=== PATIENT | male | born 1960 | race Caucasian/White ===

== ENCOUNTER 2018-01-15 06:57 | Inpatient (IN) | payer OTHER ==
[2017-12-27 13:39] VITALS: BMI 21.0
--- NOTE | 2017-12-27 14:16 | PAT Medication Instructions ---
Service Date Dec 27, 2017. Current Home Medication List Albuterol Hfa (Ventolin Hfa), 2 PUFFS INH Q6H PRN for PRN Aspirin (Weston Aspirin Ec Low Dose), 1 TAB PO QAM Atorvastatin (Lipitor), 40 MG PO QPM Duloxetine Hcl (Cymbalta), 1 CAP PO QAM Lisinopril (Prinivil), 1 TAB PO QAM Meloxicam (Mobic), 15 MG PO QAM Metoprolol Succinate (Metoprolol Succinate ER), 25 MG PO QAM Nitroglycerin (Nitroglycerin), 1 TAB SL for UNDECIDED Spironolactone (Aldactone), 1 TAB PO QAM Trazodone Hcl (Trazodone), 50 MG PO HS PRN for Depression Warfarin Sod (Coumadin), 5 MG PO 6XWEEK Warfarin Sod (Coumadin), 7.5 MG PO SUNDAY Medication Instructions For Your Scheduled Surgery -Contact your surgeon for instructions: Meloxicam (Mobic), 15 MG PO QAM -Continue as directed: Nitroglycerin (Nitroglycerin), 1 TAB SL for UNDECIDED -Follow the instructions from the [facility] for: Warfarin Sod (Coumadin), 5 MG PO 6XWEEK Warfarin Sod (Coumadin), 7.5 MG PO SUNDAY - Hold the following medications the morning of surgery: Lisinopril (Prinivil), 1 TAB PO QAM Spironolactone (Aldactone), 1 TAB PO QAM - Take the following medications the morning of surgery with a sip of water: Metoprolol Succinate (Metoprolol Succinate ER), 25 MG PO QAM Duloxetine Hcl (Cymbalta), 1 CAP PO QAM Albuterol Hfa (Ventolin Hfa), 2 PUFFS INH Q6H PRN for PRN (if needed) Aspirin (Weston Aspirin Ec Low Dose), 1 TAB PO QAM - Take the following medications as scheduled the night before surgery: Trazodone Hcl (Trazodone), 50 MG PO HS PRN for Depression (if needed) Atorvastatin (Lipitor), 40 MG PO QPM If you have any questions please call us at [phone] or [phone] or [phone]
--- NOTE | 2017-12-27 14:51 | DIAGNOSTIC IMAGING REPORT ---
CHEST 2 VIEWS ROUTINE HISTORY: 57 years-old Male PAT preoperative exam. No acute chest complaints. COMPARISON: Chest radiographs 09/16/2015 TECHNIQUE: PA and lateral views of the chest FINDINGS: Cardiac silhouette is again mildly enlarged. Dual lead left pectoral pacer/AICD appears unchanged. Atherosclerosis of the aorta. No pneumothorax, pleural effusion, focal airspace consolidation or overt pulmonary edema. Lungs are mildly hyperinflated. Increased lucency of the lungs suggests emphysema. The bones of the chest appear grossly intact. IMPRESSION: 1. Emphysema without acute process. 2. Cardiomegaly. The above report was generated using voice recognition software. It may contain grammatical, syntax or spelling errors. Electronically signed by: Dirk Mcmillan M.D. 12/27/2017 2:49 PM Dictated Date/Time: 12/27/2017 2:48 PM
[2017-12-27 15:47] LABS: BASO % 0.6 %; BASO ABS # 0.04 K/uL (0-0.2); EOS % 1.4 %; EOS ABS # 0.09 K/uL (0-0.5); HEMATOCRIT 49.1 % (42-52); HEMOGLOBIN 17.6 g/dL (14.0-18.0); IG# 0.01 K/uL (0.00-0.02); LYMPH % 33.2 %; LYMPH ABS # 2.13 K/uL (1.2-3.4); MEAN CELL VOLUME 95.9 fL (80-100); MEAN CORPUSCULAR HEMOGLOBIN 34.4 pg (25-34); MEAN CORPUSCULAR HGB CONC 35.8 g/dl (32-36); MEAN PLATELET VOLUME 10.6 fL (7.4-10.4); MONO % 12.3 %; MONO ABS # 0.79 K/uL (0.11-0.59); NEUT % 52.3 %; NEUT ABS # 3.35 K/uL (1.4-6.5); PLATELET COUNT 118 K/uL (130-400); RED CELL DISTRIBUTION WIDTH CV 14.2 % (11.5-14.5); RED CELL DISTRIBUTION WIDTH SD 50.3 fL (36.4-46.3); WHITE BLOOD COUNT 6.41 K/uL (4.8-10.8)
[2017-12-27 15:54] LABS: CALCIUM 8.7 mg/dl (8.5-10.1); CREATININE 1.04 mg/dl (0.60-1.40); POTASSIUM 4.3 mmol/L (3.5-5.1)
[~2018-01-15] VITALS: Ht 172.7 cm; Wt 65.8 kg
[2018-01-15] VITALS (10 sets, daily range): BP systolic 101–115; BP diastolic 57–69; PULSE 61–78; TEMP 36.4–36.8; O2SAT 93–98; Ht 172.7 cm; Wt 65.8 kg
[~2018-01-15 06:57] MED LIST: ASPI1TAB2 PO; CEFAZOLIN 1000MG IV PUSH 7.5 ML IV SCH; CMD/25 PO; CMD5 PO; DULO60CA44 PO; LACTATED RINGER'S 1000ML 1,000 ML IV SCH; LISI5TAB PO; LPT/40 PO; MELO7.5T5 PO; NITR0.4D6 SL; SPIR25TA89 PO; TPRSR50 PO; TRAZ50TA35 PO; VNTHFA/IN INH
[2018-01-15] MEDS ORDERED: MIDAZOLAM HCL 1 MG/ML 2ML VIAL ONE (08:14)
[2018-01-15] MEDS ORDERED: FENTANYL CITRATE INJ 50 MCG/1 ML 2 ML VIAL ONE ×3 (08:14→10:52)
[2018-01-15 08:34] LABS: INR 1.2 (0.9-1.1); PTT PATIENT 27.8 SECONDS (21.0-31.0)
--- NOTE | 2018-01-15 08:42 | History & Physical Bridge Note ---
H&P Re-Evaluation Bridge Note: I have examined the patient, reviewed the History & Physical and in the interval since the performance of the History & Physical I have noted the following changes of clinical significance: No changes noted
--- NOTE | 2018-01-15 08:43 | History and Physical ---
History & Physical Date Jan 15, 2018. Chief Complaint Back and leg pain History of Present Illness The patient is a 57 year old male with complaints of back and leg pain Past Medical/Surgical History Medical Problems: (1) Lumbar stenosis with neurogenic claudication Additional History Hepatic Disease: No Endocrine Disorder: No Kidney Disease: No Hypertension: Yes Heart Disease: No Bleeding Tendencies: No Infectious Diseases: No Allergies Coded Allergies: No Known Drug Allergy (Unverified Allergy, Unknown, NONE, 01/15/18) Home Medications Scheduled Aspirin (Weston Aspirin Ec Low Dose), 1 TAB PO QAM Atorvastatin (Lipitor), 40 MG PO QPM Duloxetine Hcl (Cymbalta), 1 CAP PO QAM Lisinopril (Prinivil), 1 TAB PO QAM Meloxicam (Mobic), 15 MG PO QAM Metoprolol Succinate (Metoprolol Succinate ER), 25 MG PO QAM Spironolactone (Aldactone), 1 TAB PO QAM Warfarin Sod (Coumadin), 5 MG PO 6XWEEK Warfarin Sod (Coumadin), 7.5 MG PO SUNDAY Scheduled PRN Albuterol Hfa (Ventolin Hfa), 2 PUFFS INH Q6H PRN for PRN Nitroglycerin (Nitroglycerin), 1 TAB SL for UNDECIDED Trazodone Hcl (Trazodone), 50 MG PO HS PRN for Depression Physical Examination Skin: warm/dry, no rash Eyes: normal inspection, EOMI, sclerae normal ENT: normal ENT inspection, pharynx normal Head: normocephalic, atraumatic Neck: supple, no adenopathy, trachea midline Respiratory/Chest: lungs clear, normal breath sounds, no respiratory distress Cardiovascular: regular rate, rhythm, no edema, no murmur Abdomen / GI: normal bowel sounds, non tender Back: normal inspection Extremities: normal inspection, normal range of motion Neurologic/Psych: no motor/sensory deficits, alert, normal reflexes, oriented x 3 Diagnosis Lumbar spinal stenosis Plan of Treatment Hardware removal L4 to S1, decompression L3 4 fusion L3 to S1
[2018-01-15] MEDS ORDERED: BACITRACIN 50000 UNIT VIAL ONE (09:07)
[2018-01-15] MEDS ORDERED: BUPIVACAINE/EPINEPHRINE 0.5% MPF 1:200,000 30 ML VIAL ONE (09:07)
[2018-01-15] MEDS ORDERED: HYDROmorphone INJ 1 MG/ML SYR IV PRN (09:15)
[2018-01-15] MEDS ORDERED: ATROPINE SULFATE 0.1 MG/ML 5ML SYR IV PRN (09:15)
[2018-01-15] MEDS ORDERED: EpHEDrine SULFATE INJ 50 MG/ML AMP IV PRN (09:15)
[2018-01-15] MEDS ORDERED: PROMETHAZINE HCL INJ 12.5 MG in SODIUM CHLORIDE 0.9% 50ML 50 ML IV PRN ×2 (09:15→11:45)
[2018-01-15] MEDS ORDERED: FENTANYL CITRATE INJ 50 MCG/1 ML 2 ML VIAL IV PRN (09:15)
[2018-01-15] MEDS ORDERED: ONDANSETRON INJ 2 MG/ML 2 ML VIAL IV PRN ×2 (09:15→11:45)
[2018-01-15] MEDS ORDERED: ALBUMIN HUMAN 5% 12.5 GM/250 ML VIAL IV ONE (09:21)
[2018-01-15] MEDS ORDERED: HYDROmorphone INJ 2 MG/ML SYR/VIAL ONE ×2 (09:52→11:40)
[2018-01-15] MEDS ORDERED: ETOMIDATE 2 MG/ML 20 ML VIAL IV ONE (10:03)
[2018-01-15] MEDS ORDERED: DEXAMETHASONE SOD INJ 4 MG/ML VIAL ONE (10:03)
[2018-01-15] MEDS ORDERED: PROPOFOL IV EMULSION 10 MG/ML 20 ML VIAL IV ONE (10:03)
[2018-01-15] MEDS ORDERED: LIDOCAINE HCL 2% 2 ML VIAL (20MG/ML) ONE (10:03)
[2018-01-15] MEDS ORDERED: EpHEDrine SULFATE 50MG/5ML SYR ONE ×3 (10:12→13:13)
[2018-01-15] MEDS ORDERED: FLOSEAL HEMOSTATIC MATRIX 10ML TOP ONE (11:27)
--- NOTE | 2018-01-15 11:34 | [facility] Operative Report ---
Operative Report Operative Date Jan 15, 2018. Pre-Operative Diagnosis Lumbar Spinal Stenosis Post-Operative Diagnosis Lumbar Spinal Stenosis Procedure(s) Performed #1 removal of posterior segmental instrumentation L4 5 L5-S1. #2 expiration of fusion L4 5 L5-S1. #3 lumbar decompression medial facetectomies foraminotomies L2-3 L3 4. #4 posterior spinal fusion L3 4 L4 5. #5 placement posterior segmental instrumentation L3 4 L4 5. #6 interbody fusion L3 4. #Placed a peek cage 11 x 22 mm L3 4. #8 placement of locally harvested morcellized autograft in the posterior lateral gutters. #9 placement infuse collagen sponge, mass graft in the posterior gutters and osteo-lamp bone graft in the interbody space. Surgeon Dr. Gaytan Cable Stretcher And Tester Surgeon(s) Effie Thomason PA-C Estimated Blood Loss 350ML Findings Severe spinal stenosis Specimens A: Explanted hardware Anesthesia Type General Description of Procedure Patient was met with preoperatively case discussed all questions addressed. After informed consent obtained patient was taken to the operative suite underwent intubation and placed in a prone position on the Fidencio table on top of the Kenji frame. All bony prominences were well-padded the eyes inspected to ensure no external pressure placed upon them. This point the lumbar spine was prepped and draped in normal sterile fashion. Sharp dissection with the assistance of Bovie cautery was performed onto an exposing the lamina and transverse processes of L3 and instrumentation L4 L5-S1 levels bilaterally. I then proceeded remove the hardware at L4 L5 S1 bilaterally. Explained fusion mass. Noted loosening at L4 5 level consistent with a nonunion. Informed complete laminectomy of L3 partial laminectomy of L2 addressing severe lateral recess and foraminal stenosis. Pedicle screws were then placed in L3-L4 and L5 bilaterally with the assistance of fluoroscopy an appropriate size jose guadalupe placed. Through a transforaminal approach on the right complete discectomy of L3 4 was performed endplates graded to subcortical bleeding bone and a 11 x 22 mm peek cage filled with osteal bone graft tapped in position. The rods were then locked and final position bilaterally. The transverse processes of L3 L4-L5 burred to subcortical bleeding bone. Infuse collagen sponge mass graft and locally harvested morcellized autograft was placed. A 15 round CLAIRE drain is inserted. Incision was then closed with 1 Vicryl in the fascia 2-0 Vicryl subcutaneous tensely 4-0 Monocryl for final skin closure Steri-Strips dressings placed. Patient with continued PACU stable condition. Please note Shanice Thomason was present at the entire procedure involved in patient positioning complex portions of the surgery and final skin closure. I attest to the content of the Intraoperative Record and any orders documented therein. Any exceptions are noted below.
[2018-01-15] MEDS ORDERED: NEOSTIGMINE METHYLSULFATE 1 MG/ML 10ML VIAL ONE (11:44)
[2018-01-15] MEDS ORDERED: KETOROLAC TROMETHAMINE 30 MG/ML VIAL ONE (11:44)
[2018-01-15] MEDS ORDERED: GLYCOPYRROLATE INJ 0.2 MG/ML VIAL ONE (11:44)
[2018-01-15] MEDS ORDERED: ONDANSETRON INJ 2 MG/ML 2 ML VIAL ONE ×2 (11:44→13:13)
[2018-01-15] MEDS ORDERED: BISACODYL 10 MG SUPP PR PRN (11:45)
[2018-01-15] MEDS ORDERED: ACETAMINOPHEN 500 MG TAB PO PRN (11:45)
[2018-01-15] MEDS ORDERED: NALOXONE HCL 0.4 MG/1 ML VIAL/CARP IV PRN ×2 (11:45→12:30)
[2018-01-15] MEDS ORDERED: DO NOT ADMINISTER PNEUMOCOCCAL VACCINE PRN (11:45)
[2018-01-15] MEDS ORDERED: METOCLOPRAMIDE HCL INJ 5 MG/ML 2 ML VIAL IV PRN (11:45)
[2018-01-15] MEDS ORDERED: LORAZEPAM 0.5 MG TAB PO PRN (11:45)
[2018-01-15] MEDS ORDERED: DO NOT ADMINISTER FLU VACCINE PRN (11:45)
[2018-01-15] MEDS ORDERED: ALUMINUM/MAGNESIUM SUSP 30 ML UDC PO PRN (11:45)
[2018-01-15] MEDS ORDERED: CEFAZOLIN IV 1,000 MG in DEXTROSE 5% 50ML 50 ML IV SCH (11:45)
[2018-01-15] MEDS ORDERED: SOD PHOSPHATE/SOD BIPHOSPHATE ENEMA 132 ML BTL PR PRN (11:45)
[2018-01-15] MEDS ORDERED: LORAZEPAM INJ 0.5 MG in SYRINGE 0.75 ML IV PRN (11:45)
[2018-01-15] MEDS ORDERED: ACETAMINOPHEN IV 100 ML IV PRN (11:45)
[2018-01-15] MEDS ORDERED: TRAZODONE HCL 50 MG TAB PO PRN (11:45)
[2018-01-15] MEDS ORDERED: hydrOXYzine HCL 25 MG TAB PO PRN (11:45)
[2018-01-15] MEDS ORDERED: FAMOTIDINE 20 MG TAB PO PRN (11:45)
[2018-01-15] MEDS ORDERED: MAGNESIUM HYDROXIDE SUSP 30 ML UDC PO PRN (11:45)
[2018-01-15] MEDS ORDERED: ALBUTEROL HFA 8 GM INHALER INH PRN (11:45)
--- NOTE | 2018-01-15 12:12 | DIAGNOSTIC IMAGING REPORT ---
LUMBAR SPINE 2 OR 3 VIEW HISTORY: 57 years-old Male L4-S1 REMOVE HARDWARE/L3-S1 DECOMPRESSION/FUSION COMPARISON: Lumbar spine spot fluoroscopic images 03/24/2016 TECHNIQUE: 3 spot fluoroscopic images of the lumbar spine were obtained utilizing 9.4 seconds fluoroscopy time FINDINGS: Posterior fusion hardware is noted at what appears to be the L3-L5 levels. Hardware appears intact and alignment is satisfactory. Discectomy changes are noted at L3-L4 and also at L5-S1. The previously noted posterior fusion hardware at L5-S1 is no longer present. IMPRESSION: Lumbar fusion and discectomy changes as above with satisfactory alignment. Please see operative report for further details. The above report was generated using voice recognition software. It may contain grammatical, syntax or spelling errors. Electronically signed by: Dirk Mcmillan M.D. 01/15/2018 12:11 PM Dictated Date/Time: 01/15/2018 12:08 PM
[2018-01-15] MEDS ORDERED: SODIUM CHLORIDE 0.9% 1000ML 1,000 ML IV SCH (12:17)
[2018-01-15] MEDS ORDERED: HYDROmorphone HCL 0.5MG/ML 50 ML CASSETTE ONE (12:27)
[2018-01-15] MEDS ORDERED: HYDROmorphone HCL 0.5MG/ML 50 ML CASSETTE IV PRN (12:30)
--- NOTE | 2018-01-15 12:36 | Anesthesiology Progress Note ---
Anesthesia Post Op Note Date & Time Jan 15, 2018 at 12:35 Vital Signs Pain Intensity: 0 Vital Signs Past 12 Hours Date Time Temp Pulse Resp B/P (MAP) Pulse Ox O2 Delivery O2 Flow Rate FiO2 01/15/18 12:25 79 15 104/61 94 Nasal Cannula 3 01/15/18 12:15 79 18 117/66 97 Oxymask 8 01/15/18 12:05 87 16 129/72 99 Oxymask 8 01/15/18 11:58 36.8 88 16 130/75 99 Oxymask 8 01/15/18 07:15 36.6 61 18 115/69 98 Room Air Notes Mental Status: alert / awake / arousable, participated in evaluation Pt Amnestic to Procedure: Yes Nausea / Vomiting: adequately controlled Pain: adequately controlled Airway Patency, RR, SpO2: stable & adequate BP & HR: stable & adequate Hydration State: stable & adequate Anesthetic Complications: no major complications apparent Awake, doing well, VSS. Will be going to telemetry unit overnight due to his cardiac comorbidities.
[2018-01-15] MEDS: SODIUM CHLORIDE 0.9% 1000ML 1,000 ML IV SCH (14:25)
[2018-01-15] MEDS: CEFAZOLIN IV 1,000 MG in SYRINGE 0 ML IV SCH (17:53)
[2018-01-15] MEDS: DOCUSATE SODIUM/SENNA 50/8.6MG TAB PO SCH (21:18)
[2018-01-15] MEDS: ATORVASTATIN 40 MG TAB PO SCH (21:18)
[2018-01-15] MEDS ORDERED: NURSING DECISION MEDICATION ORDER SCH (21:45)
--- NOTE | 2018-01-15 21:46 | Medical Consult ---
Consultation Date of Consultation: Jan 15, 2018. Attending Physician: Shaquille Gaytan D.O. Reason for Consultation: Medical management . History of Present Illness 57-year-old male followed by Dr. Timmons in [place]. History of coronary artery disease, ischemic cardiomyopathy, COPD, and other problems noted below. Removal of lumbar hardware and lumbar fusion performed today by Dr. Gaytan. Doing well postoperatively. No chest pain. No cough or dyspnea. No nausea or vomiting. Has Garcia catheter. Postop pain well-controlled. . Past Medical/Surgical History Coronary artery disease, status post myocardial infarction, status post PCI Ischemic cardiomyopathy History of left ventricular thrombus COPD Dyslipidemia . Family History Mother-heart disease Father-"blood clot" Brother-COPD Sister-hypertension . Social History Smoking Status: Current Every Day Smoker Alcohol Use: Drank regularly in the past, but not for several years. Allergies Coded Allergies: No Known Drug Allergy (Unverified Allergy, Unknown, NONE, 01/15/18) Home Medications Reported Home Medications Medications Dose Route/Sig Max Daily Dose Days Date Category Dose Instructions Ventolin Hfa (Albuterol) 200 Puffs/98477 Mcg Aers 2 Puffs INH Q6H PRN 12/27/17 Reported Coumadin (Warfarin Sod) 2.5 Mg Tab 7.5 Mg PO Sunday12/27/17 Reported PM Mobic (Meloxicam) 7.5 Mg Tab 15 Mg PO QAM 12/27/17 Reported Nitroglycerin 0.4 Mg/Hr Dis 1 Tab SL PRN 09/15/15 Reported DIRECTED Trazodone (Trazodone HCl) 50 Mg Tab 50 Mg PO HS PRN 09/15/15 Reported Coumadin (Warfarin Sod) 5 Mg Tab 5 Mg PO 6XWEEK 09/15/15 Reported QPM EXCEPT WEDNESDAYS Metoprolol Succinate ER (Metoprolol Succinate) 50 Mg Tabcr 25 Mg PO QAM 09/15/15 Reported Weston Aspirin Ec Low Dose (Aspirin) 81 Mg Tab 1 Tab PO QAM 30 09/15/15 Reported Lipitor (Atorvastatin) 40 Mg Tab 40 Mg PO QPM 09/15/15 Reported Prinivil (Lisinopril) 5 Mg Tab 1 Tab PO QAM 90 09/15/15 Reported Aldactone (Spironolactone) 25 Mg Tab 1 Tab PO QAM 90 09/15/15 Reported Cymbalta (Duloxetine Hcl) 60 Mg Cap 1 Cap PO QAM 90 09/15/15 Reported Current Inpatient Medications Current Inpatient Medications Medications (Trade) Dose Ordered Sig/Zuri Route Start Time Stop Time Status Last Admin Dose Admin Promethazine HCl 12.5 mg/Sodium Chloride 50.5 ml @ 202 mls/hr Q6H PRN IV 01/15/18 11:45 02/14/18 11:44 Ondansetron HCl (Zofran Inj) 4 mg Q6H PRN IV 01/15/18 11:45 02/14/18 11:44 Metoclopramide HCl (Reglan Inj) 10 mg Q6H PRN IV 01/15/18 11:45 02/14/18 11:44 Lorazepam (Ativan Tab) 0.5 mg Q8H PRN PO 01/15/18 11:45 02/14/18 11:44 Lorazepam 0.5 mg/ Syringe 1 ml @ 1 mls/min Q8H PRN IV 01/15/18 11:45 02/14/18 11:44 Pneumococcal Polysaccharide Vaccine 1 ea PRN PRN N/A 01/15/18 11:45 02/14/18 11:44 Influenza Virus Vacc Triv Types A&B 1 ea PRN PRN N/A 01/15/18 11:45 02/14/18 11:44 Polyethylene (Miralax Powder Packet) 17 gm Q6 PO 01/17/18 06:00 02/16/18 05:59 Bisacodyl (Dulcolax Supp) [address] 01/15/18 11:45 02/14/18 11:44 Magnesium Hydroxide (Milk Of Magnesia Susp) 30 ml DAILY PRN PO 01/15/18 11:45 02/14/18 11:44 Hydromorphone HCl (Dilaudid Inj) 0.5-1mg prn moder... Q3H PRN IV 01/16/18 06:00 01/30/18 05:59 Oxycodone HCl (Roxicodone Immediate Rel Tab) 5-10mg prn moderate to sev... Q4H PRN PO 01/16/18 06:00 01/30/18 05:59 Sodium Chloride 1,000 ml @ 150 mls/hr Q6H40M IV 01/15/18 14:00 02/14/18 13:59 01/15/18 14:25 150 MLS/HR Acetaminophen (Tylenol Tab) 1,000 mg Q8H PRN PO 01/15/18 11:45 02/14/18 11:44 Acetaminophen 100 ml @ 400 mls/hr Q8H PRN IV 01/15/18 11:45 02/14/18 11:44 Naloxone HCl (Narcan Inj) 0.1 mg Q5M PRN IV 01/15/18 11:45 02/14/18 11:44 Senna/Docusate Sodium (Senokot S Tab) 2 tab HS PO 01/15/18 21:00 02/14/18 20:59 01/15/18 21:18 2 TAB Sodium Biphosphate/ Sodium Phosphate (Fleet Enema) [address] 01/15/18 11:45 02/14/18 11:44 Hydroxyzine HCl (Vistaril Tab) 25 mg Q8H PRN PO 01/15/18 11:45 02/14/18 11:44 Al Hydroxide/Mg Hydroxide (Maalox Susp) 30 ml Q6H PRN PO 01/15/18 11:45 02/14/18 11:44 Famotidine (Pepcid Tab) 20 mg Q12 PRN PO 01/15/18 11:45 02/14/18 11:44 Diphenhydramine HCl (Benadryl Cap) 25 mg Q6H PRN PO 01/15/18 11:45 02/14/18 11:44 Miscellaneous Information (Discontinue FOOD SERVICE MANAGER) 1 ea TODAY@0600 N/A 01/16/18 06:00 01/16/18 06:01 Albuterol (Ventolin Hfa Inhaler) 2 puffs Q6H PRN INH 01/15/18 11:45 02/14/18 11:44 Aspirin (Ecotrin Tab) 81 mg QAM PO 01/16/18 09:00 02/15/18 08:59 Atorvastatin Calcium (Lipitor Tab) 40 mg QPM PO 01/15/18 21:00 02/14/18 20:59 01/15/18 21:18 40 MG Duloxetine HCl (Cymbalta Cap) 60 mg QAM PO 01/16/18 09:00 02/15/18 08:59 Lisinopril (Zestril Tab) 5 mg QAM PO 01/16/18 09:00 02/15/18 08:59 Metoprolol Succinate (Toprol Xl Tab) 25 mg QAM PO 01/16/18 09:00 02/15/18 08:59 Spironolactone (Aldactone Tab) 25 mg QAM PO 01/16/18 09:00 02/15/18 08:59 Trazodone HCl (Desyrel Tab) 50 mg HS PRN PO 01/15/18 11:45 02/14/18 11:44 Naloxone HCl (Narcan Inj) 0.1 mg Q5M PRN IV 01/15/18 12:30 01/16/18 06:00 Hydromorphone HCl (Dilaudid Surgical Orderly) 25 mg PRN PRN IV 01/15/18 12:30 01/16/18 06:00 Sodium Chloride 1,000 ml @ 15 mls/hr Q24H IV 01/15/18 12:17 01/16/18 06:00 01/15/18 12:17 15 MLS/HR Cefazolin Sodium 1000 mg/Syringe 7.5 ml @ 2.5 mls/min Q8H IV 01/15/18 18:00 01/16/18 02:02 01/15/18 17:53 2.5 MLS/MIN Miscellaneous Information (Nursing Decision Medication Order) 1 ea UD N/A 01/15/18 21:45 02/14/18 21:44 UNV Review of Systems Constitutional: No fever Respiratory: No cough, No shortness of breath Cardiovascular: No chest pain, No edema Abdomen: No nausea, No vomiting, No GI bleeding Musculoskeletal: + joint pain (Back pain) Genitourinary - Male: No hematuria, No dysuria Hematologic / Lymphatic: + abnormal bleeding/bruising (Bruises easily) Physical Exam Date Time Temp Pulse Resp B/P (MAP) Pulse Ox O2 Delivery O2 Flow Rate FiO2 01/15/18 16:30 70 18 107/60 (76) 97 Room Air 01/15/18 16:00 64 18 103/66 (78) 97 Nasal Cannula 2.0 01/15/18 16:00 97 Nasal Cannula 2.0 01/15/18 15:30 64 18 103/66 (78) 97 Room Air 01/15/18 14:31 36.8 75 18 106/61 (76) 96 Nasal Cannula 2.0 01/15/18 14:28 36.8 73 18 101/57 (72) 96 Nasal Cannula 2.0 01/15/18 13:30 36.6 78 18 107/63 (78) 93 Nasal Cannula 2.0 01/15/18 13:15 66 20 102/56 93 Nasal Cannula 3 01/15/18 13:00 71 22 108/60 94 Nasal Cannula 3 01/15/18 12:45 36.6 72 22 106/59 94 Nasal Cannula 3 01/15/18 12:35 77 20 115/63 94 Nasal Cannula 3 01/15/18 12:25 79 15 104/61 94 Nasal Cannula 3 01/15/18 12:15 79 18 117/66 97 Oxymask 8 01/15/18 12:05 87 16 129/72 99 Oxymask 8 01/15/18 11:58 36.8 88 16 130/75 99 Oxymask 8 01/15/18 07:15 36.6 61 18 115/69 98 Room Air General Appearance: WD/WN, no apparent distress Head: normocephalic, atraumatic Eyes: normal inspection, PERRL, EOMI, sclerae normal, + pertinent finding ( Conjunctivae clear) ENT: normal ENT inspection, hearing grossly normal Neck: supple, no adenopathy, thyroid normal, no JVD, trachea midline Respiratory/Chest: lungs clear Cardiovascular: regular rate, rhythm, no edema, no gallop, no JVD, no murmur Abdomen/GI: normal bowel sounds, non tender, soft, no organomegaly Genitourinary - Male: + pertinent finding (Garcia catheter draining clear urine) Extremities/Musculoskelatal: normal inspection, no calf tenderness, + pertinent finding (SCDs applied) 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 INR 1.2. Sodium 134, potassium 4.3, chloride 103, CO2 26, BUN 7, creatinine 1.4, glucose 74. Chest x-ray demonstrated cardiomegaly, emphysematous changes, no infiltrates, effusions, CHF. Last 24 Hours Test 01/15/18 08:05 Prothrombin Time 12.6 SECONDS Prothromb Time International Ratio 1.2 Activated Partial Thromboplast Time 27.8 SECONDS Partial Thromboplastin Ratio 1.1 Assessment & Plan S/P REMOVAL LUMBAR HARDWARE / FUSION Doing well postoperatively. Management per Orthopedics. CORONARY ARTERY DISEASE History of myocardial infarction about 10 years ago; status post PCI. No recent anginal symptoms. Continue aspirin if OK from surgical perspective. Continue metoprolol and statin. ISCHEMIC CARDIOMYOPATHY Compensated. Monitor for signs/symptoms of CHF. Continue metoprolol, lisinopril, Spironolactone. HISTORY LV THROMBUS Warfarin held preoperatively. Resume warfarin postoperatively when okay from surgical perspective. COPD Inspiratory status stable. Incentive spirometry. VTE PROPHYLAXIS Per Orthopedics protocol. Thank you for this consultation. We will follow the patient with you during their hospital stay. Dr. Estes will be assuming medical management on 01/16/18. You can reach a member of the [facility] Medicine Team 11/06 via pager @ [phone]. You can reach me via cell @ [phone]. .
[2018-01-15] MEDS ORDERED: COUGH DROP (SUGAR FREE) LOZ 24 LOZ/1 BOX LOZ ONE (22:27)
[2018-01-15] MEDS ORDERED: COUGH DROP (SUGAR FREE) LOZ 24 LOZ/1 BOX LOZ PRN (23:15)
[2018-01-16] VITALS (9 sets, daily range): BP systolic 105–119; BP diastolic 59–71; PULSE 63–77; TEMP 36.5–37.1; O2SAT 93–98
[2018-01-16] MEDS: SODIUM CHLORIDE 0.9% 1000ML 1,000 ML IV SCH (04:19)
[2018-01-16] MEDS: CEFAZOLIN IV 1,000 MG in SYRINGE 0 ML IV SCH (04:20)
[2018-01-16] MEDS ORDERED: NICOTINE 21 MG/24 HR TDSY TD ONE (05:42)
[2018-01-16] MEDS ORDERED: HYDROmorphone INJ 0.5 MG/0.5 ML SYR IV PRN (06:00)
[2018-01-16] MEDS ORDERED: DC PCA SCH (06:00)
--- NOTE | 2018-01-16 06:31 | Clinical Documentation Query ---
Dr. CARDENAS LISA : CLINICAL DOCUMENTATION QUERY Patient is a 57 year old male who on 01/15 underwent removal of lumbosacral instrumentation, inferior posterior decompression, segmental instrumentation and interbody fusion. H&P notes only a history of hypertension. However, medication list includes the following: Aspirin (Weston Aspirin Ec Low Dose), 1 TAB PO QAM Atorvastatin (Lipitor), 40 MG PO QPM Duloxetine Hcl (Cymbalta), 1 CAP PO QAM Lisinopril (Prinivil), 1 TAB PO QAM Meloxicam (Mobic), 15 MG PO QAM Metoprolol Succinate (Metoprolol Succinate ER), 25 MG PO QAM Spironolactone (Aldactone), 1 TAB PO QAM Warfarin Sod (Coumadin), 5 MG PO 6XWEEK Warfarin Sod (Coumadin), 7.5 MG PO SUNDAY Scheduled PRN Albuterol Hfa (Ventolin Hfa), 2 PUFFS INH Q6H PRN for PRN Nitroglycerin (Nitroglycerin), 1 TAB SL for UNDECIDED Trazodone Hcl (Trazodone), 50 MG PO HS PRN for Depression Consider documentation of these clinically significant comorbid conditions as this may affect severity of illness and measures of risk of mortality. Thank you. In your clinical opinion is this patient being managed for: ( ) Chronic systolic CHF, ischemic cardiomyopathy, CAD, history of intracardiac thrombus, depression, hypercholesterolemia ( ) Not Agree ( ) Other explanation of clinical findings (Please Explain) ( ) Unable to determine (Please Define) ( ) Need to Discuss The medical record reflects the following clinical findings, treatment, and risk factors. Clinical Indicators: As above Treatment: As above Please clarify and document your clinical opinion in the progress notes and discharge summary. Terms such as "probable", "suspected", "likely", "questionable", "possible", or "still to be ruled out" are acceptable. IF IN AGREEMENT, YOU MUST DOCUMENT ABOVE DIAGNOSTIC STATEMENT IN DAILY PROGRESS NOTES AND DISCHARGE SUMMARY. This document is not part of the patient's record. Thank You, Miguel A Saucedo, RN [phone]
[2018-01-16 06:32] LABS: HEMATOCRIT 33.6 % (42-52); HEMOGLOBIN 11.4 g/dL (14.0-18.0); MEAN CELL VOLUME 97.1 fL (80-100); MEAN CORPUSCULAR HEMOGLOBIN 32.9 pg (25-34); MEAN CORPUSCULAR HGB CONC 33.9 g/dl (32-36); RED CELL DISTRIBUTION WIDTH CV 13.9 % (11.5-14.5); RED CELL DISTRIBUTION WIDTH SD 48.9 fL (36.4-46.3); WHITE BLOOD COUNT 11.75 K/uL (4.8-10.8)
[2018-01-16 07:06] LABS: CALCIUM 7.9 mg/dl (8.5-10.1); CREATININE 0.97 mg/dl (0.60-1.40); POTASSIUM 4.4 mmol/L (3.5-5.1)
[2018-01-16 07:23] LABS: BASO % 0.1 %; BASO ABS # 0.01 K/uL (0-0.2); IG# 0.02 K/uL (0.00-0.02); LYMPH % 9.5 %; LYMPH ABS # 1.12 K/uL (1.2-3.4); MEAN PLATELET VOLUME 9.8 fL (7.4-10.4); MONO % 9.3 %; MONO ABS # 1.09 K/uL (0.11-0.59); NEUT % 80.9 %; NEUT ABS # 9.51 K/uL (1.4-6.5); PLATELET COUNT 99 K/uL (130-400)
[2018-01-16] MEDS ORDERED: NURSING VERBAL MED ORDER ONE (07:30)
--- NOTE | 2018-01-16 07:54 | Anesthesiology Progress Note ---
Anesthesia Post Op Note Date & Time Jan 16, 2018 at 07:54 Vital Signs Pain Intensity: 0.0 Vital Signs Past 12 Hours Date Time Temp Pulse Resp B/P (MAP) Pulse Ox O2 Delivery O2 Flow Rate FiO2 01/16/18 03:38 36.6 70 18 105/59 (74) 93 Nasal Cannula 2.0 01/15/18 23:50 36.8 68 22 102/61 (75) 93 Room Air 01/15/18 22:05 36.4 69 19 112/58 (76) 96 Room Air 01/15/18 20:00 97 Nasal Cannula 2.0 Notes Mental Status: alert / awake / arousable, participated in evaluation Pt Amnestic to Procedure: Yes Nausea / Vomiting: adequately controlled Pain: adequately controlled Airway Patency, RR, SpO2: stable & adequate BP & HR: stable & adequate Hydration State: stable & adequate Anesthetic Complications: no major complications apparent
[2018-01-16] MEDS: LISINOPRIL 5 MG TAB PO SCH (08:05)
[2018-01-16] MEDS: SPIRONOLACTONE 25 MG TAB PO SCH (08:05)
[2018-01-16] MEDS: METOPROLOL SUCC 25MG EXT REL TAB PO SCH (08:05)
[2018-01-16] MEDS: DULOXETINE HCL 60 MG CAP PO SCH (08:05)
[2018-01-16] MEDS: ASPIRIN 81 MG ECTAB PO SCH (08:06)
[2018-01-16] MEDS: OXYCODONE HCL IR 5 MG TAB (IMMEDIATE RELEASE) PO PRN ×3 (10:26→19:40)
--- NOTE | 2018-01-16 14:35 | Progress Note ---
Progress Note Date of Service Jan 16, 2018. Progress Note Pain is well-controlled. Patient denies a significant leg pain. Processes are stable. On exam he is in a chair at the bedside. His good strength testing. Is appears comfortable. Assessment status post lumbar decompression fusion. Plan at this time will continue with activity as tolerated advance his physical therapy. He can be transferred the orthopedic floor when okay with medicine. We'll hopefully discharge either or Sunday.
--- NOTE | 2018-01-16 15:34 | Progress Note ---
Medicine Progress Note Date & Time of Visit: Jan 16, 2018 at 15:25. Subjective Pt was seen and examined Sitting in chair with no distress Pt said that pain is controlled Denies any numbness, palpitation, dizziness and SOB Objective Last 8 Hrs Date Time Temp Pulse Resp B/P (MAP) Pulse Ox O2 Delivery O2 Flow Rate FiO2 01/16/18 12:00 Room Air 01/16/18 11:48 36.5 63 18 107/61 (76) 98 Room Air 01/16/18 10:05 71 96 01/16/18 08:02 37.1 77 18 119/60 (79) 96 Nasal Cannula 2.0 01/16/18 08:00 Room Air Physical Exam: General- No acute distress Head- atraumatic Eyes- PERRL, EOMI ENT- oropharynx clear Neck- supple, no JVD Lungs- No wheezing Heart- regular rhythm Abdomen- normal bowel sounds, soft Extremities- no calf tenderness Neuro- alert, oriented x 3; PERRL, EOMI Skin- warm & dry Laboratory Results: Last 24 Hours Test 01/16/18 06:14 White Blood Count 11.75 K/uL Red Blood Count 3.46 M/uL Hemoglobin 11.4 g/dL Hematocrit 33.6 % Mean Corpuscular Volume 97.1 fL Mean Corpuscular Hemoglobin 32.9 pg Mean Corpuscular Hemoglobin Concent 33.9 g/dl Platelet Count 99 K/uL Mean Platelet Volume 9.8 fL Neutrophils (%) (Auto) 80.9 % Lymphocytes (%) (Auto) 9.5 % Monocytes (%) (Auto) 9.3 % Eosinophils (%) (Auto) 0.0 % Basophils (%) (Auto) 0.1 % Neutrophils # (Auto) 9.51 K/uL Lymphocytes # (Auto) 1.12 K/uL Monocytes # (Auto) 1.09 K/uL Eosinophils # (Auto) 0.00 K/uL Basophils # (Auto) 0.01 K/uL RDW Standard Deviation 48.9 fL RDW Coefficient of Variation 13.9 % Immature Granulocyte % (Auto) 0.2 % Immature Granulocyte # (Auto) 0.02 K/uL Platelet Estimate DECREASED Sodium Level 135 mmol/L Potassium Level 4.4 mmol/L Chloride Level 102 mmol/L Carbon Dioxide Level 27 mmol/L Anion Gap 6.0 mmol/L Blood Urea Nitrogen 12 mg/dl Creatinine 0.97 mg/dl Est Creatinine Clear Calc Drug Dose 77.3 ml/min Estimated GFR () 99.3 Estimated GFR (Non- 85.7 BUN/Creatinine Ratio 12.7 Random Glucose 132 mg/dl Calcium Level 7.9 mg/dl Assessment & Plan Lumbar Spinal Stenosis S/P REMOVAL LUMBAR HARDWARE / FUSION s/p day#1 removal lumbar hardware/ fusion by Dr. Gaytan Continue pain control as per ortho Incentive spirometry PT/OT CORONARY ARTERY DISEASE Stable Continue aspirin/metoprolol and statin ISCHEMIC CARDIOMYOPATHY No signs of volume overload. Continue metoprolol, lisinopril, Spironolactone. stable HISTORY LV THROMBUS Warfarin has been on hold Will resume coumadin once ok by ortho COPD Stable VTE PROPHYLAXIS Per Orthopedics protocol. CODE STATUS FULL CODE DISPOSITION Will d/c tele Current Inpatient Medications: Current Inpatient Medications Medications (Trade) Dose Ordered Sig/Zuri Route Start Time Stop Time Status Last Admin Dose Admin Promethazine HCl 12.5 mg/Sodium Chloride 50.5 ml @ 202 mls/hr Q6H PRN IV 01/15/18 11:45 02/14/18 11:44 Ondansetron HCl (Zofran Inj) 4 mg Q6H PRN IV 01/15/18 11:45 02/14/18 11:44 Metoclopramide HCl (Reglan Inj) 10 mg Q6H PRN IV 01/15/18 11:45 02/14/18 11:44 Lorazepam (Ativan Tab) 0.5 mg Q8H PRN PO 01/15/18 11:45 02/14/18 11:44 Lorazepam 0.5 mg/ Syringe 1 ml @ 1 mls/min Q8H PRN IV 01/15/18 11:45 02/14/18 11:44 Pneumococcal Polysaccharide Vaccine 1 ea PRN PRN N/A 01/15/18 11:45 02/14/18 11:44 Influenza Virus Vacc Triv Types A&B 1 ea PRN PRN N/A 01/15/18 11:45 02/14/18 11:44 Polyethylene (Miralax Powder Packet) 17 gm Q6 PO 01/17/18 06:00 02/16/18 05:59 Bisacodyl (Dulcolax Supp) 10 mg DAILY PRN [place] 01/15/18 11:45 02/14/18 11:44 Magnesium Hydroxide (Milk Of Magnesia Susp) 30 ml DAILY PRN PO 01/15/18 11:45 02/14/18 11:44 Hydromorphone HCl (Dilaudid Inj) 0.5-1mg prn moder... Q3H PRN IV 01/16/18 06:00 01/30/18 05:59 Oxycodone HCl (Roxicodone Immediate Rel Tab) 5-10mg prn moderate to sev... Q4H PRN PO 01/16/18 06:00 01/30/18 05:59 01/16/18 14:33 10 MG Acetaminophen (Tylenol Tab) 1,000 mg Q8H PRN PO 01/15/18 11:45 02/14/18 11:44 Acetaminophen 100 ml @ 400 mls/hr Q8H PRN IV 01/15/18 11:45 02/14/18 11:44 Naloxone HCl (Narcan Inj) 0.1 mg Q5M PRN IV 01/15/18 11:45 02/14/18 11:44 Senna/Docusate Sodium (Senokot S Tab) 2 tab HS PO 01/15/18 21:00 02/14/18 20:59 01/15/18 21:18 2 TAB Sodium Biphosphate/ Sodium Phosphate (Fleet Enema) 132 ml ONE PRN [place] 01/15/18 11:45 02/14/18 11:44 Hydroxyzine HCl (Vistaril Tab) 25 mg Q8H PRN PO 01/15/18 11:45 02/14/18 11:44 Al Hydroxide/Mg Hydroxide (Maalox Susp) 30 ml Q6H PRN PO 01/15/18 11:45 02/14/18 11:44 Famotidine (Pepcid Tab) 20 mg Q12 PRN PO 01/15/18 11:45 02/14/18 11:44 Diphenhydramine HCl (Benadryl Cap) 25 mg Q6H PRN PO 01/15/18 11:45 02/14/18 11:44 Albuterol (Ventolin Hfa Inhaler) 2 puffs Q6H PRN INH 01/15/18 11:45 02/14/18 11:44 Aspirin (Ecotrin Tab) 81 mg QAM PO 01/16/18 09:00 02/15/18 08:59 01/16/18 08:06 81 MG Atorvastatin Calcium (Lipitor Tab) 40 mg QPM PO 01/15/18 21:00 02/14/18 20:59 01/15/18 21:18 40 MG Duloxetine HCl (Cymbalta Cap) 60 mg QAM PO 01/16/18 09:00 02/15/18 08:59 01/16/18 08:05 60 MG Lisinopril (Zestril Tab) 5 mg QAM PO 01/16/18 09:00 02/15/18 08:59 01/16/18 08:05 5 MG Metoprolol Succinate (Toprol Xl Tab) 25 mg QAM PO 01/16/18 09:00 02/15/18 08:59 01/16/18 08:05 25 MG Spironolactone (Aldactone Tab) 25 mg QAM PO 01/16/18 09:00 02/15/18 08:59 01/16/18 08:05 25 MG Trazodone HCl (Desyrel Tab) 50 mg HS PRN PO 01/15/18 11:45 02/14/18 11:44 Menthol (Nice Moses) 1 moses PRN PRN MOSES 01/15/18 23:15 02/14/18 23:14 Nicotine (Nicoderm Cq 21MG Patch) 1 patch QAM TD 01/17/18 09:00 02/16/18 08:59 Miscellaneous (Remove Nicoderm Patch) 1 ea HS N/A 01/16/18 21:00 02/15/18 20:59
[2018-01-16] MEDS: ATORVASTATIN 40 MG TAB PO SCH (21:12)
[2018-01-16] MEDS: DOCUSATE SODIUM/SENNA 50/8.6MG TAB PO SCH (21:12)
[2018-01-17] MEDS: POLYETHYLENE (MIRALAX) 17 GM PACK PO SCH ×2 (05:41→11:51)
[2018-01-17] MEDS: OXYCODONE HCL IR 5 MG TAB (IMMEDIATE RELEASE) PO PRN ×2 (05:46→11:54)
[2018-01-17 06:26] LABS: HEMATOCRIT 37.1 % (42-52); HEMOGLOBIN 12.8 g/dL (14.0-18.0); MEAN CELL VOLUME 96.4 fL (80-100); MEAN CORPUSCULAR HEMOGLOBIN 33.2 pg (25-34); MEAN CORPUSCULAR HGB CONC 34.5 g/dl (32-36); MEAN PLATELET VOLUME 10.4 fL (7.4-10.4); PLATELET COUNT 113 K/uL (130-400); RED CELL DISTRIBUTION WIDTH CV 14.1 % (11.5-14.5); RED CELL DISTRIBUTION WIDTH SD 49.1 fL (36.4-46.3); WHITE BLOOD COUNT 9.37 K/uL (4.8-10.8)
[2018-01-17 07:19] VITALS: BP 103/62; PULSE 67; TEMP 36.7; O2SAT 92
[2018-01-17] MEDS ORDERED: RXC5 PO (07:40)
--- NOTE | 2018-01-17 07:41 | Discharge Instructions ---
Discharge Instructions Date of Service Jan 17, 2018. Admission Reason for Admission: Lumbar Spinal Stenosis Discharge Discharge Diagnosis / Problem: lumbar stenosis Discharge Goals Goal(s): Improve function Activity Recommendations Activity Limitations: per Instructions/Follow-up section . Instructions / Follow-Up Instructions / Follow-Up ACTIVITY RECOMMENDATIONS: SELF CARE INSTRUCTIONS AFTER THORACIC/LUMBAR FUSIONS 1. You may walk to your tolerance. It is good exercise for your legs and back. Expect some back and intermittent leg aches and pains. 2. You may perform "counter-top" level activities (make a sandwich, britt with a project, etc.). 3. No bending or lifting of more than 10 pounds or back twisting of any nature (roll like a log when turning in bed). 4. You may ride in a car for 20-30 minutes at a time. No driving until after your first visit with your doctor. 5. Frequent changes of position and restricting sitting to 30 minutes at a time will help limit the amount of back spasms and stiffness you may experience. 6. You may discontinue the use of ambulatory aids (cane, crutches, etc.) once your strength and confidence allow. 7. You may traveling accountant the shower and let water strike your incision when you arrive home at least once daily. Do not take a tub bath, sit in a hot tub or go into a swimming pool until after your first recheck in the office. SPECIAL CARE INSTRUCTIONS: VERY IMPORTANT TO READ AND REVIEW A. Your surgical incision has been closed with a cosmetic suture under the skin that will dissolve in about 6 weeks. In 14 days, you can use a pair of clean scissors and cut the suture that is left outside of the skin at the ends of your incision. 1. The small skin tapes can be removed 7 days after surgery if they have not fallen off by that point. 2. You may keep the wound open to air as much as possible to promote healing after post-op day number 5 unless told otherwise by your doctor. 3. If you think the wound looks like it is becoming infected (redness or worsening drainage) and/or you are experiencing fever, chill or worsening back pain and muscle spasms, contact the office so that we may evaluate you as soon as possible. B. Complications are uncommon, but please contact us if you have any signs or symptoms of: 1. wound infection (fever higher than 102.5 degrees F, redness, separation of wound, drainage, or increasing pain from the incision) 2. blood clots in legs (pain, swelling, redness and warmth in legs) 3. urinary tract infection (fever higher than 102.5 degrees F, burning upon urination or increased frequency of urination) 4. nerve problems (inability to walk on your toes or heels, numbness, loss of bowel or bladder control) 5. any other symptoms that concern you C. Please call the office at if you have any concerns or questions about your operation or recovery. D. No smoking! Smoking drastically decreases the chance of a solid fusion. E. Do not take any anti-inflammatory medications (Indocin, Advil, Motrin, Aspirin, Naprosyn, etc.) as these may inhibit the chance of a solid fusion. Tylenol is okay to take for pain. MANAGING PAIN AFTER SPINAL SURGERY 1. Narcotic medication is intended for short-term use and will be provided for surgical pain. Surgical pain usually lasts for a period of 4-6 weeks. Narcotic medication includes Percocet, Vicodin, Darvocet, Tylenol #3 or Lortab. 2. Longer-term pain is more appropriately treated with non-narcotic medication such as Tylenol ES. 3. Muscle spasm is not appropriately treated with narcotics. Muscle relaxers such as Soma, Flexeril or Skelaxin can be used along with Tylenol ES. 4. Remember that we all live with some "aches and pains". This is not unusual or uncommon after an injury or as we get older. a. Back pain is expected and may include muscle spasms for 4 to 6 weeks after surgery. The pain should gradually improve. If the pain worsens for no apparent reason, please contact the office. b. Intermittent leg pain may also be experienced and should not be concerned about unless it worsens for no apparent reason. If so, please contact the office. 5. We will provide appropriate medication within the normal guidelines of their prescribed use. We will also be very cautious and aware of potential abuse and extended duration of patients' medication needs. a. Pain medications are for your comfort and to assist with sleep and rest so that the tissue can heal. They are not provided in order to return to normal activity and should not be used through the day. To do so or worsening pain at night can result from ongoing tissue damage and development of tolerance to the prescribed medicine. 6. Please allow 2-3 days to process refills. Prescriptions will not be mailed but must be picked up at the office. FOLLOW UP VISIT: Keep your scheduled follow-up appointment. Any questions, please call the office at . Current Hospital Diet Patient's current hospital diet: Regular Diet Discharge Diet Recommended Diet: Regular Diet Procedures Procedures Performed: #1 removal of posterior segmental instrumentation L4 5 L5-S1. #2 expiration of fusion L4 5 L5-S1. #3 lumbar decompression medial facetectomies foraminotomies L2-3 L3 4. #4 posterior spinal fusion L3 4 L4 5. #5 placement posterior segmental instrumentation L3 4 L4 5. #6 interbody fusion L3 4. #Placed a peek cage 11 x 22 mm L3 4. #8 placement of locally harvested morcellized autograft in the posterior lateral gutters. #9 placement infuse collagen sponge, mass graft in the posterior gutters and osteo-lamp bone graft in the interbody space. Pending Studies Studies pending at discharge: no Medical Emergencies . Who to Call and When: Medical Emergencies: If at any time you feel your situation is an emergency, please call 911 immediately. . Non-Emergent Contact Non-Emergency issues call your: Primary Care Provider . "Provider Documentation" section prepared by Shaquille Gaytan. . VTE Core Measure Inpt VTE Proph given/why not?: Deborah Rodriguez, SCD's
--- NOTE | 2018-01-17 07:57 | Discharge Summary ---
Orthopedic Discharge Summary Admission Date/Reason Jan 15, 2018 at 12:34 Lumbar Spinal Stenosis. Discharge Date/Disposition Jan 17, 2018 Home Diagnosis Principal Diagnosis: Lumbar spinal stenosis Admission Physical Exam As per Admitting History & Physical. Hospital Course Patient underwent lumbar decompression and fusion tolerated this well and was taken to the PACU for the first night. He was stable and subsequently brought to the orthopedic floor. He tolerated physical therapy well. Leg symptoms improved. Subsequently he was discharged home. Discharge orders and instructions can be found on the chart for further review. Discharge Instructions Please refer to the electronic Patient Visit Report (Discharge Instructions) for additional information.
[2018-01-17 08:44] VITALS: BP 108/54; PULSE 67
[2018-01-17] MEDS: LISINOPRIL 5 MG TAB PO SCH (08:47)
[2018-01-17] MEDS: SPIRONOLACTONE 25 MG TAB PO SCH (08:47)
[2018-01-17] MEDS: ASPIRIN 81 MG ECTAB PO SCH (08:47)
[2018-01-17] MEDS ORDERED: NICOTINE 21 MG/24 HR TDSY TD SCH (09:00)
[2018-01-17] MEDS: DULOXETINE HCL 60 MG CAP PO SCH (09:27)
[2018-01-17] MEDS: METOPROLOL SUCC 25MG EXT REL TAB PO SCH (09:27)
[2018-01-17 10:36] VITALS: BP 108/54; PULSE 67; TEMP 36.7; O2SAT 92
== END 2018-01-17 14:10 | disposition home or self-care (01) | DRG 454 ==
LOC: C.ACU 06:57 → CANRESERV 12:27 → ENRESERV 12:27 → EDBEDREQSVC 12:34 → C.2E 12:34 → ENRESERV 13:15 → C.MSN 01-16 20:58
PROVIDERS: ADMIT Orthopaedic Surgery Orthopaedic Surgery of the Spine; ATTEND Orthopaedic Surgery Orthopaedic Surgery of the Spine
PROC: 0ST20ZZ Resection of Lumbar Vertebral Disc, Open Approach (ICD-10-PCS; principal; 2018-01-15 09:00)
PROC: 0QP104Z Removal of Internal Fixation Device from Sacrum, Open Approach (ICD-10-PCS; principal; 2018-01-15 09:00)
PROC: 01NB0ZZ Release Lumbar Nerve, Open Approach (ICD-10-PCS; principal; 2018-01-15 09:00)
PROC: 0SG1071 Fusion of 2 or more Lumbar Vertebral Joints with Autologous Tissue Substitute, Posterior Approach, Posterior Column, Open Approach (ICD-10-PCS; principal; 2018-01-15 09:00)
PROC: 0QP004Z Removal of Internal Fixation Device from Lumbar Vertebra, Open Approach (ICD-10-PCS; principal; 2018-01-15 09:00)
PROC: 0SG00AJ Fusion of Lumbar Vertebral Joint with Interbody Fusion Device, Posterior Approach, Anterior Column, Open Approach (ICD-10-PCS; principal; 2018-01-15 09:00)
DX: M48.061 Spinal stenosis, lumbar region without neurogenic claudication (principal); M96.0 Pseudarthrosis after fusion or arthrodesis; I10 Essential (primary) hypertension; I25.5 Ischemic cardiomyopathy; J44.9 Chronic obstructive pulmonary disease, unspecified; I25.2 Old myocardial infarction; E78.5 Hyperlipidemia, unspecified; I51.3 Intracardiac thrombosis, not elsewhere classified; Z95.818 Presence of other cardiac implants and grafts; Z79.01 Long term (current) use of anticoagulants